=== PATIENT | female | born 1945 | race Caucasian/White ===

== ENCOUNTER 2016-06-04 05:30 | Inpatient (IN) | payer OTHER ==
[2016-05-20 13:02] LABS: URINE BILIRUBIN NEGATIVE (Negative); URINE BLOOD NEGATIVE (Negative); URINE COLOR YELLOW; URINE GLUCOSE-RANDOM* NEGATIVE (Negative); URINE KETONES NEGATIVE (Negative); URINE LEUKOCYTES-REFLEX 1+ (Negative); URINE PROTEIN (DIPSTICK) NEGATIVE (Negative); URINE SPECIFIC GRAVITY 1.015 (1.003-1.035); URINE UROBILINOGEN 0.2 E.U./dl (0.2-1.0)
[2016-05-20 13:07] LABS: HEMATOCRIT 40.2 % (37.0-47.0); HEMOGLOBIN 13.5 gm/dL (12.0-15.0); MCH 29.4 pg (26.0-34.0); MCHC 33.5 g/dL (28.0-37.0); MCV 87.8 fL (80.0-100.0); RBC 4.58 mil/uL (4.20-5.00); RDW 13.7 % (10.5-14.5); WBC 10.5 thou/uL (4.0-11.0)
[2016-05-20 13:10] LABS: ALBUMIN 3.9 g/dL (3.4-5.0); CALCIUM 9.4 mg/dL (8.5-10.1); CREATININE 1.3 mg/dL (0.6-1.3); POTASSIUM 3.9 mmol/L (3.5-5.1)
[2016-05-20 13:14] LABS: PROTIME 10.1 Seconds (9.3-11.4)
[2016-05-20 14:04] LABS: CASTS None Seen /LPF (None Seen); CRYSTALS None Seen /LPF (None Seen); SQUAMOUS 0-3 Few /LPF (0-3); URINE RBC None Seen /HPF (0-2); URINE WBC-REFLEX 0-5 Rare /HPF (0-5)
[2016-06-04] VITALS (7 sets, daily range): BP systolic 92–139; BP diastolic 55–72
[~2016-06-04] VITALS: Ht 167.6 cm; Wt 93.0 kg
--- NOTE | ~2016-06-04 | H ---
[facility] [address] [place] [address] HISTORY AND PHYSICAL Name: LUIS A PATEL Room #: 543-P [facility] IN M.R.#: [id number] Admission: 06/04/16 Attend Phys: Samir Reyes MD Discharge: 06/07/16 Date of : 43 Report #: [id number] THIS REPORT FOR: //name// For History and Physical, please see office documentation/handwritten note in the patient's medical record. By: [id number] Samir Reyes MD /
--- NOTE | ~2016-06-04 | O ---
[facility] [address] [place] [address] OPERATIVE REPORT Name: LUIS A PATEL Room #: 150-3 ADM IN M.R.#: [id number] Admission: 06/04/16 Attend Phys: Samir Reyes MD Discharge: Date of : 43 Report #: [id number] THIS REPORT FOR: //name// CC: Velasquez Reyes DATE OF SERVICE: 06/04/2016 PREOPERATIVE DIAGNOSIS: Right hip degenerative joint disease, severe. POSTOPERATIVE DIAGNOSIS: Right hip degenerative joint disease, severe. OPERATIVE PROCEDURE: Right total hip arthroplasty. SURGEON: Samir Reyes MD. ALTERATION SPECIALIST: Eduar Rust, nurse practitioner. INDICATIONS FOR ALTERATION SPECIALIST: During the course of operation, extensive manipulation, retraction, and limb positioning was required. This was afforded to me by my bilingual teacher assistant. ANESTHESIA: General. INDICATIONS: See hospital H and P revisions, 06/04/2016. IMPLANTS UTILIZED: We used a Cucumber Secur-Fit Max hip stem. We used a size 9 stem, 132 degree neck angle, +2.5 neck length, with 36 outer diameter head with a 52 outer diameter hemispherical acetabular shell solid back with a Trident X3 elevated rim insert. DESCRIPTION OF PROCEDURE: After adequate general anesthesia had been obtained, the patient was placed in the lateral decubitus position, right hip up. Right hip and lower extremity were prepped and draped in the usual meticulous sterile fashion. Posterolateral incision was made. SubQ divided sharply. Hemostasis was obtained with electrocautery. IT band gluteal fascia was divided. This layer was retracted with a Charnley retractor. Hip was internally rotated. The external rotators were detached at their insertion, tagged, and retracted posteriorly. Capsular incision was made. It likewise was tagged and retracted posteriorly. Hip was dislocated. Starter awl was placed at the base of the neck and advanced to the canal. Canal was sequentially reamed to a size 9. Neck osteotomy performed. Attention was directed to the acetabulum. It was circumferentially exposed. Labrum was excised and sequentially reamed to a size 50. We had a good press [facility] [address] [place] [address] OPERATIVE REPORT Name: LUIS A PATEL Room #: 150-3 ADM IN M.R.#: [id number] Admission: 06/04/16 Attend Phys: Samir Reyes MD Discharge: Date of : 43 Report #: [id number] fit with a trial 50, so we reamed to 51, irrigated copiously and implanted the shell. Cap screw placed. Liner was placed with the elevated portion posteriorly. Attention was redirected to the femur. Femur was sequentially broached to a size 9. Excellent torsional stability was obtained. Trial reduction demonstrated that a +2.5 gave us the best reapproximation of leg lengths and stability parameters, so this was selected. Trial components were then removed. Hip was irrigated copiously. The stem was impacted into place, and the head impacted in to place. The hip was then reduced. We then repaired the capsule and external rotators to the trochanter. We placed drains deep and superficial. IT band gluteal fascia was closed with a combination of interrupted [id number] #1 Vicryl, as well as running #1 Tevdek. Subq closed with 2-0 Monocryl. Skin closed with joseline. Sterile compressive dressing was applied. By: [id number] Samir Reyes MD /nt
[~2016-06-04 05:30] MED LIST: ALEVE220 MG PO; ALVESCO6.1 GM; ASPIR 8181 MG PO; CARDIZEM CD180 MG PO; CIPROFLOXACIN500 M3 PO; CYCLOBENZAPRINE10 MG PO; EVISTA PO; GLUCOSAMINE CH1 EAC7 PO; KEFLEX500 MG PO; MEDROL4 MG PO; NORCO 5-325 TA1 EACH PO; PRINIVIL10 MG PO; QVAR8.7 G1 INH; SINGULAIR 10 MG10 M1 PO; TRIAMTERENE-HC1 EAC1 PO; VENTOLIN HFA 1818 GM INH; VITAMIN D31000 UNI2 PO
[2016-06-05] VITALS (7 sets, daily range): BP systolic 98–143; BP diastolic 40–86
[2016-06-05 06:09] LABS: HEMATOCRIT 33.3 % (37.0-47.0); HEMOGLOBIN 11.3 gm/dL (12.0-15.0); MCH 29.6 pg (26.0-34.0); MCV 87.1 fL (80.0-100.0); RBC 3.82 mil/uL (4.20-5.00); RDW 13.5 % (10.5-14.5); WBC 15.9 thou/uL (4.0-11.0)
[2016-06-06 04:00] VITALS: BP 123/857
[2016-06-06 04:11] LABS: HEMATOCRIT 31.4 % (37.0-47.0); HEMOGLOBIN 10.5 gm/dL (12.0-15.0); MCH 29.3 pg (26.0-34.0); MCHC 33.4 g/dL (28.0-37.0); MCV 87.6 fL (80.0-100.0); RBC 3.58 mil/uL (4.20-5.00); RDW 13.6 % (10.5-14.5); WBC 14.7 thou/uL (4.0-11.0)
[2016-06-06 06:35] VITALS: BP 123/57
[2016-06-06] MEDS ORDERED: HYDROCODONE-APA1 TA1 PO (06:35)
[2016-06-06] MEDS ORDERED: XARELTO10 MG PO (06:35)
[2016-06-06 07:25] VITALS: BP 120/56
[2016-06-06 10:34] VITALS: BP 120/56
[2016-06-06 15:15] VITALS: BP 113/53
[2016-06-06 21:30] VITALS: BP 115/52
[2016-06-07 03:30] VITALS: BP 130/54
[2016-06-07 06:47] LABS: HEMATOCRIT 31.4 % (37.0-47.0); HEMOGLOBIN 10.9 gm/dL (12.0-15.0); MCH 30.2 pg (26.0-34.0); MCHC 34.7 g/dL (28.0-37.0); MCV 87.1 fL (80.0-100.0); RBC 3.6 mil/uL (4.20-5.00); RDW 13.7 % (10.5-14.5); WBC 10.2 thou/uL (4.0-11.0)
[2016-06-07 07:54] VITALS: BP 113/56
[2016-06-07 10:39] VITALS: BP 120/56
== END 2016-06-07 13:15 | disposition home health service (06) | DRG 470 ==
LOC: TBA 05:30 → 5S 05:30 → PRE 05:33 → 5S 14:29
PROVIDERS: Orthopaedic Surgery
PROC: 0SR904Z Replacement of Right Hip Joint with Ceramic on Polyethylene Synthetic Substitute, Open Approach (ICD-10-PCS; principal; 2016-06-04)
DX: M16.11 Unilateral primary osteoarthritis, right hip (principal); I10 Essential (primary) hypertension; Z79.899 Other long term (current) drug therapy
CPT/HCPCS: 10785; 50010; 50101; 50382; 50414; 50455; 50612; 50855; 50953; 51412; 51771; 53000; 55388; 56521; 56525; 56527; 56530; 57095; 62110; 62900; 70005

== ENCOUNTER → 2016-12-04 | Outpatient (CLI) | payer OTHER ==
[~2016-12-04] MED LIST changes: +HYDROCODONE-APA1 TA1 PO; +XARELTO10 MG PO
== END ==
LOC: RAD 00:32
DX: Z12.31 Encounter for screening mammogram for malignant neoplasm of breast (principal)

== ENCOUNTER → 2017-06-12 | Outpatient (CLI) | payer OTHER | LOC: RAD 10:23 | DX: J45.909 Unspecified asthma, uncomplicated (principal) ==

== ENCOUNTER → 2017-12-05 | Outpatient (CLI) | payer OTHER | LOC: RAD 02:32 | DX: Z12.31 Encounter for screening mammogram for malignant neoplasm of breast (principal) ==

== ENCOUNTER → 2018-07-21 | Outpatient (CLI) | payer OTHER | LOC: ULTRA 12:26 | DX: I82.811 Embolism and thrombosis of superficial veins of right lower extremity (principal) ==

== ENCOUNTER → 2018-12-09 | Outpatient (CLI) | payer OTHER | LOC: RAD 09:05 | DX: Z12.31 Encounter for screening mammogram for malignant neoplasm of breast (principal) ==

== ENCOUNTER → 2019-09-27 | Outpatient (CLI) | payer OTHER | LOC: SJCVCIMAG 11:07 | PROVIDERS: ATTEND Internal Medicine Cardiovascular Disease | DX: I49.3 Ventricular premature depolarization (principal); I10 Essential (primary) hypertension; E78.5 Hyperlipidemia, unspecified; J45.909 Unspecified asthma, uncomplicated ==

== ENCOUNTER → 2019-12-13 | Outpatient (CLI) | payer OTHER | LOC: BC 13:36 | PROVIDERS: ATTEND Obstetrics & Gynecology | DX: Z12.31 Encounter for screening mammogram for malignant neoplasm of breast (principal) ==

== ENCOUNTER → 2020-06-27 | Outpatient (CLI) | payer OTHER, MEDICARE | LOC: SJCVC 10:11 | PROVIDERS: ATTEND Internal Medicine Cardiovascular Disease | DX: I10 Essential (primary) hypertension (principal); I47.1 Supraventricular tachycardia; E78.00 Pure hypercholesterolemia, unspecified; J45.909 Unspecified asthma, uncomplicated; K21.9 Gastro-esophageal reflux disease without esophagitis; I12.9 Hypertensive chronic kidney disease with stage 1 through stage 4 chronic kidney disease, or unspecified chronic kidney disease; N18.30 Chronic kidney disease, stage 3 unspecified; E66.3 Overweight; Z79.82 Long term (current) use of aspirin; Z79.899 Other long term (current) drug therapy; Z68.33 Body mass index [BMI] 33.0-33.9, adult ==

== ENCOUNTER → 2020-12-21 | Outpatient (CLI) | payer OTHER, MEDICARE | LOC: BC 09:45 | PROVIDERS: ATTEND Obstetrics & Gynecology | DX: Z12.31 Encounter for screening mammogram for malignant neoplasm of breast (principal) ==